=== PATIENT | female | born 1990 | race Caucasian/White ===

== ENCOUNTER 2017-01-23 19:55 | Inpatient (IN) | payer OTHER ==
[~2017-01-23] VITALS: Ht 162.6 cm; Wt 81.6 kg
[2017-01-23] MEDS ORDERED: ZOFRAN4 MG PO (20:47)
[2017-01-26] MEDS ORDERED: FERROUS SULFAT325 M1 PO ×2 (07:42→07:45)
[2017-01-26] MEDS ORDERED: MOTRIN800 MG PO (07:42)
[2017-01-26] MEDS ORDERED: PRENATAL PLUS I1 TAB PO (07:45)
== END 2017-01-26 09:28 | disposition short-term general hospital (02) | DRG 775 ==
LOC: LDRIP 19:55
PROVIDERS: ADMIT Family Medicine
PROC: 3E0P7GC Introduction of Other Therapeutic Substance into Female Reproductive, Via Natural or Artificial Opening (ICD-10-PCS; principal; 2017-01-24)
PROC: 10E0XZZ Delivery of Products of Conception, External Approach (ICD-10-PCS; principal; 2017-01-24)
PROC: 0HQ9XZZ Repair Perineum Skin, External Approach (ICD-10-PCS; principal; 2017-01-24)
DX: O70.0 First degree perineal laceration during delivery (principal); Z3A.40 40 weeks gestation of pregnancy; Z37.0 Single live birth
CPT/HCPCS: A9150; J2300; J2310; J2370; J2405; J2590; J2765; J2795; J3010